=== PATIENT | female | born 2000 | race Caucasian/White ===

== ENCOUNTER 2020-06-28 22:44 | Inpatient (IN) | payer MEDICAID ==
[2020-06-29 00:11] LABS: APPEARANCE,URINE CLEAR; BILIRUBIN,URINE NEGATIVE (NEGATIVE); COLOR,URINE YELLOW; GLUCOSE, URINE 50 mg/dL (NEGATIVE); KETONES,URINE NEGATIVE (NEGATIVE); LEUKOCYTE ESTERASE,URINE TRACE (NEGATIVE); NITRITE,URINE NEGATIVE (NEGATIVE); PROTEIN,URINE NEGATIVE (NEGATIVE); UROBILINOGEN,URINE NEGATIVE mg/dL (<2.0)
[2020-06-29] MEDS ORDERED: ONDANSETRON HCL INJ/PF 4 MG/2 ML SDV IV ONE (00:25)
[2020-06-29] MEDS ORDERED: KETOROLAC TROMETHAMINE INJ/PF 30 MG/1 ML SDV IV ONE (00:25)
[2020-06-29] MEDS ORDERED: NORMAL SALINE 1000 ML 1,000 ML IV ONE (00:27)
--- NOTE | 2020-06-29 00:27 | ER Document Report ---
Entered by AHSAN AGUILAR SCRIBE 06/29/20 0004 Acting as scribe for:LATHA ERNST IV, MD ED GI/ - General Chief Complaint: Flank Pain Stated Complaint: FLANK PAIN Time Seen by Provider: 06/28/20 23:58 Primary Care Provider: BONNY PRITCHETT MD [Primary Care Provider] - Follow up as needed Mode of Arrival: Wheelchair Information source: Patient Notes: This 19 year old female patient, , currently x25 weeks presents to the ED today with complaints of worsening right flank pain for the last x2 days. Patient states that the pain radiates towards her groin and periumbilical region. She reports that she was seen at [facility] x2 days ago with the same complaint and was diagnosed with a UTI and was started on Macrobid. She mentions nausea, but denies vomiting, diarrhea, vaginal bleeding, or any urinary symptoms. - Related Data Allergies/Adverse Reactions: No Known Allergies Allergy (Unverified 06/28/20 23:40) Past Medical History - General Information source: Patient - Social History Smoking Status: Former Smoker Cigarette use (# per day): No Smoking Education Provided: No Frequency of alcohol use: None Drug Abuse: None Lives with: Spouse/Significant other Family History: Reviewed & Not Pertinent Patient has suicidal ideation: No Patient has homicidal ideation: No Review of Systems - Review of Systems Constitutional: No symptoms reported EENT: No symptoms reported Cardiovascular: No symptoms reported Respiratory: No symptoms reported Gastrointestinal: See HPI, Abdominal pain, Nausea. denies: Diarrhea, Vomiting Genitourinary: See HPI, Flank pain. denies: Burning, Dysuria, Frequency, Hematuria, Pain Female Genitourinary: See HPI, , Vaginal bleeding Musculoskeletal: No symptoms reported Skin: No symptoms reported Hematologic/Lymphatic: No symptoms reported Neurological/Psychological: No symptoms reported -: Yes All other systems reviewed and negative Physical Exam - Vital signs Vitals: Temp Pulse Resp BP Pulse Ox 98.6 F 117 H 17 125/62 100 06/28/20 22:53 06/28/20 22:53 06/28/20 22:53 06/28/20 22:53 06/28/20 22:53 Interpretation: Tachycardic - General General appearance: Alert In distress: None - HEENT Head: Normocephalic, Atraumatic Eyes: Normal Pupils: PERRL - Respiratory Respiratory status: No respiratory distress Chest status: Nontender Breath sounds: Normal Chest palpation: Normal - Cardiovascular Rhythm: Regular, Tachycardia Heart sounds: Normal auscultation Murmur: No Friction rub: No Gallop: None auscultated - Abdominal Inspection: Normal Distension: No distension Bowel sounds: Normal Tenderness: Nontender - Abdomen soft Organomegaly: No organomegaly - Back Back: CVA tenderness - Right CVA tenderness to percussion - Extremities General upper extremity: Normal inspection General lower extremity: Normal inspection - Neurological Neuro grossly intact: Yes Orientation: AAOx4 Velma Coma Scale Eye Opening: Spontaneous [place] Coma Scale Verbal: Oriented [place] Coma Scale Motor: Obeys Commands Velma Coma Scale Total: 15 - Psychological Associated symptoms: Normal affect, Normal mood - Skin Skin Temperature: Warm Skin Moisture: Dry Skin Color: Normal Course - Re-evaluation Re-evalutation: 06/29/20 00:48 Results of ED MSE discussed with patient. Can consult with Dr. Chang discussed with patient. Patient agreed to be admitted. - Vital Signs Vital signs: Temp Pulse Resp BP Pulse Ox 98.6 F 117 H 17 125/62 100 06/28/20 23:42 06/28/20 22:53 06/28/20 22:53 06/28/20 22:53 06/28/20 22:53 - Laboratory Result Diagrams: 06/29/20 00:25 06/29/20 00:25 Laboratory results interpreted by me: 06/28/20 06/29/20 23:32 00:25 Hct 34.6 L Lymph % (Auto) 9.6 L Seg Neutrophils % 80.0 H Urine Glucose (UA) 50 H Ur Leukocyte Esterase TRACE H - Consults Dr. Danuta Chang Vik, PROCESS TRAINER Time consulted: 00:25 - This discussed the case with Dr. Chang. We agreed that renal ultrasound would not likely be useful in further evaluating the patient's right flank pain. Dr. Chang was agreeable to having the patient undergo a CT abdomen pelvis without contrast as long as the fetus was shielded. This was informed by the technical support representative that if a shield was used the scan would be unreadable secondary to artifact from the shield. Dr. Chang was informed of this and stated that she would just admit the patient for right flank pain and treat with fluids and antibiotics. Dr. Chang requested that the patient be moved to the floor and when the patient arrived there Dr. Chang would write admission orders. Reason for consultation: 06/29/20 00:45 Worsening right flank pain not responsive to Macrobid. Consulted provider: will see as inpatient Discharge - Discharge Clinical Impression: Acute right flank pain Condition: Stable Disposition: ADMITTED OBSERVATION Admitting Provider: [facility] - Dr. Danuta Chang Unit Admitted: Post Referrals: BONNY PRITCHETT MD [Primary Care Provider] - Follow up as needed I personally performed the services described in the documentation, reviewed and edited the documentation which was dictated to the scribe in my presence, and it accurately records my words and actions.
[2020-06-29 00:31] LABS: ABSOLUTE NEUT (AUTO) 8.1 10^3/uL (1.7-8.2); BASOPHILS % (AUTO) 0.1 % (0-2); EOSINOPHILS % (AUTO) 0.4 % (0-6); HEMATOCRIT 34.6 % (36.0-47.0); HEMOGLOBIN 12.1 g/dL (12.0-15.5); LYMPHOCYTES % (AUTO) 9.6 % (13-45); MEAN CORPUSCULAR HEMOGLOBIN 30.3 pg (27.0-33.4); MEAN CORPUSCULAR HGB CONC 34.9 g/dL (32.0-36.0); MEAN CORPUSCULAR VOLUME 87 fl (80-97); MONOCYTES % (AUTO) 9.9 % (3-13); PLATELET COUNT 176 10^3/uL (150-450); RED BLOOD COUNT 3.98 10^6/uL (3.72-5.28); RED CELL DISTRIBUTION WIDTH 13.2 % (11.5-14.0); TOTAL CELLS COUNTED % (AUTO) 100 %; WHITE BLOOD COUNT 10.1 10^3/uL (4.0-10.5)
[2020-06-29] MEDS ORDERED: CEFTRIAXONE INJ 1000 MG VIAL IV ONE (00:49)
[2020-06-29 01:16] LABS: BLOOD UREA NITROGEN 9 mg/dL (7-20); GLUCOSE 93 mg/dL (75-110)
[2020-06-29 01:17] LABS: ALBUMIN 3.7 g/dL (3.7-5.6); ALKALINE PHOSPHATASE 76 U/L (50-135); ANION GAP 7 (5-19); ASPARTATE AMINO TRANSFERASE 17 U/L (5-30); BILIRUBIN,DIRECT 0.3 mg/dL (0.0-0.4); BILIRUBIN,TOTAL 0.6 mg/dL (0.2-1.3); CARBON DIOXIDE 23 mmol/L (22-30); CHLORIDE 104 mmol/L (98-107); TOTAL PROTEIN 6.8 g/dL (6.3-8.2)
[2020-06-29] MEDS ORDERED: ONDANSETRON HCL INJ/PF 4 MG/2 ML SDV IV PRN (03:18)
[2020-06-29] MEDS: RINGERS SOLUTION,LACTATED 1,000 ML IV PRN ×3 (04:06→23:03)
--- NOTE | 2020-06-29 06:32 | PDOC H&P ---
History of Present Illness Admission Date/PCP: 06/29/20 01:11 ROSALINA SANTOS MD Patient complains of: flank pain and dysuria, 24 wks History of Present Illness: BALAJI ROMAN is a 19 year old female @ 24 wks with c/o UTI that she began taking meds for from her OB appt on Monday. However, her abdominal pain increased and radiated to her back. Indicates pain worsening Past Medical History Psychiatric Medical History: Denies: Depression Social History Lives with: Spouse/Significant other Smoking Status: Former Smoker Electronic Cigarette use?: No Number of Years Smokin Last Time Smoked: 2018 Frequency of Alcohol Use: None Hx Recreational Drug Use: No Drugs: None Hx Prescription Drug Abuse: No Family History Family History: Reviewed & Not Pertinent Parental Family History Reviewed: Yes Children Family History Reviewed: Yes Sibling(s) Family History Reviewed.: Yes Medication/Allergy Home Medications: Nitrofurantoin Monohyd/M-Cryst [Macrobid 100 mg Capsule] 100 mg PO BID 06/28/20 Allergies/Adverse Reactions: No Known Allergies Allergy (Unverified 06/28/20 23:40) Review of Systems Constitutional: PRESENT: as per HPI Physical Exam - Physical Exam Vital Signs: Temp Pulse Resp BP Pulse Ox 98.4 F 85 14 104/54 L 99 06/29/20 03:00 06/29/20 03:00 06/29/20 03:00 06/29/20 03:00 06/29/20 03:00 Intake & Output 06/27/20 06/28/20 06/29/20 06:59 06:59 06:59 Intake Total 1000 Balance 1000 Weight 67.585 kg General appearance: PRESENT: no acute distress, cooperative - mild right CVA tendernernes - Obstetrical Exam Fundal Height: u/u - u/2 Tender: No Result Laboratory Results: 06/29/20 00:25 06/29/20 00:25 06/28/20 06/29/20 06/29/20 23:32 00:25 00:25 WBC 10.1 RBC 3.98 Hgb 12.1 Hct 34.6 L MCV 87 MCH 30.3 MCHC 34.9 RDW 13.2 Plt Count 176 Seg Neutrophils % 80.0 H Sodium 134.1 L Potassium 4.0 Chloride 104 Carbon Dioxide 23 Anion Gap 7 BUN 9 Creatinine 0.60 Est GFR ( Amer) > 60 Glucose 93 Calcium 9.0 Total Bilirubin 0.6 AST 17 Alkaline Phosphatase 76 Total Protein 6.8 Albumin 3.7 Lipase 69.9 Urine Color YELLOW Urine Appearance CLEAR Urine pH 7.0 Ur Specific [place] 1.010 Urine Protein NEGATIVE Urine Glucose (UA) 50 H Urine Ketones NEGATIVE Urine Blood NEGATIVE Urine Nitrite NEGATIVE Ur Leukocyte Esterase TRACE H Urine WBC (Auto) 14 Urine RBC (Auto) 0 Assessment & Plan - Diagnosis (1) Qualifiers: Weeks of gestation: 24 weeks Qualified Code(s): Z3A.24 - 24 weeks gestation of Is this a current diagnosis for this admission?: Yes (2) Pyelonephritis Is this a current diagnosis for this admission?: Yes - Time Time Spent: 30 to 50 Minutes Critical Time spent with patient: Less than 15 minutes Medications reviewed and adjusted accordingly: Yes Anticipated Discharge Disposition: Home, Self Care Anticipated Discharge Timeframe: within 24 hours - hydrate and antibiotics. pt's pain control seems good and she has not asked for narcotics per patient - Inpatient Certification Based on my medical assessment, after consideration of the patient's comorbidities, presenting symptoms, or acuity I expect that the services needed warrant INPATIENT care.: Yes I certify that my determination is in accordance with my understanding of Medicare's requirements for reasonable and necessary INPATIENT services [42 CFR 412.3e].: Yes Medical Necessity: Failure to Improve With Outpatient Therapy, Need For IV Fluids, Need for IV Antibiotics
--- NOTE | 2020-06-29 07:27 | RADIOLOGY REPORT (SQ) ---
RENAL ULTRASOUND: 06/29/2020 6:24 AM CDT HISTORY: 19-year old with concern for infection. COMPARISON: None available TECHNIQUE: Limited sonographic evaluation of the kidneys was performed. FINDINGS: Both kidneys demonstrate normal cortical echogenicity. The right kidney measures up to 10.6 cm in length. The left kidney measures up to 10.8 cm in length. There is mild fullness of the bilateral renal pelvises. No free intraperitoneal fluid is seen. The visualized portions of the urinary bladder appear grossly unremarkable. The abdominal aorta and inferior vena cava are not well visualized. IMPRESSION: There is mild fullness of the bilateral renal pelvises which could be due to hydronephrosis or prominent extrarenal pelvises.
[2020-06-29] MEDS: CEFTRIAXONE 1 GM/D5W RTU 1 GM/50 ML RTUPB IV SCH ×2 (10:04→21:42)
[2020-06-29] MEDS: OXYCODONE-ACETAMINOPHEN 5-325 MG TABLET PO PRN ×2 (14:41→23:16)
[2020-06-30] MEDS: OXYCODONE-ACETAMINOPHEN 5-325 MG TABLET PO PRN ×3 (04:06→21:04)
[2020-06-30] MEDS: RINGERS SOLUTION,LACTATED 1,000 ML IV PRN ×2 (06:18→21:06)
[2020-06-30] MEDS: CEFTRIAXONE 1 GM/D5W RTU 1 GM/50 ML RTUPB IV SCH ×2 (09:43→21:05)
--- NOTE | 2020-06-30 11:19 | PDOC PROGRESS REPORT ---
Subjective Progress Note for:: 06/30/20 Subjective:: Doing okay today. Still having some nausea with breakfast and had to stop eating due to nausea. Tolerating fluids She denies fever or chills. No hematuria or dysuria today. Voiding okay. Has some back pain still on right when moving. She is laying on right side. Reason For Visit: ACUTE PYELONEPHRITIS Physical Exam - Physical Exam Vital Signs: Temp Pulse Resp BP Pulse Ox 97.4 F 78 20 103/57 L 100 06/30/20 10:00 06/30/20 08:16 06/30/20 08:16 06/30/20 08:16 06/30/20 08:16 Intake & Output 06/29/20 06/30/20 07/01/20 06:59 06:59 06:59 Intake Total 1000 3100 Output Total 3100 Balance 1000 0 Weight 67.6 kg 66.1 kg General appearance: PRESENT: no acute distress, cooperative Respiratory exam: PRESENT: clear to auscultation dixon Cardiovascular exam: PRESENT: RRR, +S1, +S2 GI/Abdominal exam: PRESENT: soft, tenderness - No CVA tenderness left. Tender on palpation on right. Extremities exam: PRESENT: full ROM. ABSENT: calf tenderness, clubbing, pedal edema Neurological exam: PRESENT: alert, awake. ABSENT: motor sensory deficit Psychiatric exam: PRESENT: normal mood Skin exam: PRESENT: dry, intact, warm. ABSENT: cyanosis, rash Result Laboratory Results: 06/29/20 00:25 06/29/20 00:25 Impressions: Renal Ultrasound 06/29/20 00:00 IMPRESSION: There is mild fullness of the bilateral renal pelvises which could be due to hydronephrosis or prominent extrarenal pelvises. Assessment & Plan - Diagnosis (2) Qualifiers: Weeks of gestation: 25 weeks Qualified Code(s): Z3A.25 - 25 weeks gestation of Is this a current diagnosis for this admission?: Yes (3) Pyelonephritis Is this a current diagnosis for this admission?: Yes - Time Time Spent with patient: 15-24 minutes Medications reviewed and adjusted accordingly: Yes Anticipated discharge: Home - Right pyelonephritis in -Not tolerating PO well -Afebrile and VSS -Exam positive for Right CVA tenderness -Culture prelim showed Gram neg rods: likely ecoli. -Continue rocephen 1 gm IV Q 12 - Good out put -FHT daily Anticipated DC Timeframe: within 48 hours
[2020-07-01] MEDS: RINGERS SOLUTION,LACTATED 1,000 ML IV PRN (04:36)
--- NOTE | 2020-07-01 07:37 | PDOC DISCHARGE SUMMARY ---
Impression - Admit/DC Date/PCP Admission Date/Primary Care Provider: 06/29/20 01:11 ROSALINA SANTOS MD Discharge Date: 07/01/20 - Discharge Diagnosis (1) Acute right flank pain Is this a current diagnosis for this admission?: Yes (2) Is this a current diagnosis for this admission?: Yes (3) Pyelonephritis Is this a current diagnosis for this admission?: Yes - Additional Information Resuscitation Status: Full Code - Patient admitted with right flank pain and found to have right pyelonephritis. She was given rocephen IV and Urine culture showed ecoli-sheikh sensative She was having nausea and vomitng with her flank pain but today these have resolved. She is afebrile. Will discharge with PO antibiotics and outpatient follow up .Fetus stable. She is encouraged to keep hydrating and call if not tolerating antibiotics at home or if worsening condition. Discharge Diet: As Tolerated Discharge Activity: Activity As Tolerated Referrals: BONNY PRITCHETT MD [NO LOCAL MD] - Follow up as needed Prescriptions: Cephalexin Monohydrate [Keflex 500 mg Capsule] 500 mg PO BID #14 capsule Ondansetron [Zofran Odt 4 mg Tablet] 1 tab PO Q4HP PRN #10 tab.rapdis PRN Reason: Home Medications: Cephalexin Monohydrate [Keflex 500 mg Capsule] 500 mg PO BID #14 capsule 07/01/20 Ondansetron [Zofran Odt 4 mg Tablet] 1 tab PO Q4HP PRN #10 tab.rapdis 07/01/20 History of Present Illiness History of Present Illness: BALAJI ROMAN is a 19 year old female Physical Exam - Physical Exam Vital Signs: Temp Pulse Resp BP Pulse Ox 98.6 F 79 16 123/62 100 07/01/20 04:45 07/01/20 04:45 07/01/20 04:45 07/01/20 04:45 07/01/20 04:45 Intake & Output 06/30/20 07/01/20 07/02/20 06:59 06:59 06:59 Intake Total 3100 4200 Output Total 3100 3600 Balance 0 600 Weight 66.1 kg 66 kg Results Laboratory Results: WBC 10.1 10^3/uL (4.0-10.5) 06/29/20 00:25 RBC 3.98 10^6/uL (3.72-5.28) 06/29/20 00:25 Hgb 12.1 g/dL (12.0-15.5) 06/29/20 00:25 Hct 34.6 % (36.0-47.0) L 06/29/20 00:25 MCV 87 fl (80-97) 06/29/20 00: MCH 30.3 pg (27.0-33.4) 06/29/20 00: MCHC 34.9 g/dL (32.0-36.0) 06/29/20 00:25 RDW 13.2 % (11.5-14.0) 06/29/20 00: Plt Count 176 10^3/uL (150-450) 06/29/20 00: Lymph % (Auto) 9.6 % (13-45) L 06/29/20 00: [place] % (Auto) 9.9 % (3-13) 06/29/20 00: Eos % (Auto) 0.4 % (0-6) 06/29/20 00: Baso % (Auto) 0.1 % (0-2) 06/29/20 00:25 Absolute Neuts (auto) 8.1 10^3/uL (1.7-8.2) 06/29/20 00: Absolute Lymphs (auto) 1.0 10^3/uL (0.5-4.7) 06/29/20 00:25 Absolute Monos (auto) 1.0 10^3/uL (0.1-1.4) 06/29/20 00:25 Absolute Eos (auto) 0.0 10^3/uL (0.0-0.6) 06/29/20 00:25 Absolute Basos (auto) 0.0 10^3/uL (0.0-0.2) 06/29/20 00:25 Seg Neutrophils % 80.0 % (42-78) H 06/29/20 00:25 Sodium 134.1 mmol/L (137-145) L 06/29/20 00:25 Potassium 4.0 mmol/L (3.6-5.0) 06/29/20 00: Chloride 104 mmol/L (98-107) 06/29/20 00:25 Carbon Dioxide 23 mmol/L (22-30) 06/29/20 00:25 Anion Gap 7 (5-19) 06/29/20 00:25 BUN 9 mg/dL (7-20) 06/29/20 00:25 Creatinine 0.60 mg/dL (0.52-1.25) 06/29/20 00:25 Est GFR ( Amer) > 60 (>60) 06/29/20 00:25 Est GFR (MDRD) Non-Af > 60 (>60) 06/29/20 00:25 Glucose 93 mg/dL (75-110) 06/29/20 00:25 Calcium 9.0 mg/dL (8.4-10.2) 06/29/20 00:25 Total Bilirubin 0.6 mg/dL (0.2-1.3) 06/29/20 00:25 Direct Bilirubin 0.3 mg/dL (0.0-0.4) 06/29/20 00:25 Neonat Total Bilirubin Not Reportable 06/29/20 00:25 Neonat Direct Bilirubin Not Reportable 06/29/20 00:25 Neonat Indirect Bili Not Reportable 06/29/20 00:25 AST 17 U/L (5-30) 06/29/20 00:25 ALT 11 U/L (<35) 06/29/20 00:25 Alkaline Phosphatase 76 U/L (50-135) 06/29/20 00:25 Total Protein 6.8 g/dL (6.3-8.2) 06/29/20 00:25 Albumin 3.7 g/dL (3.7-5.6) 06/29/20 00:25 Lipase 69.9 U/L (23-300) 06/29/20 00:25 Beta HCG, Quant 7846.60 mIU/mL (0.0-6.15) H 06/29/20 00:25 Total Beta HCG POSITIVE (NEGATIVE) 06/29/20 00:25 Urine Color YELLOW 06/28/20 23:32 Urine Appearance CLEAR 06/28/20 23:32 Urine pH 7.0 (5.0-9.0) 06/28/20 23:32 Ur Specific [place] 1.010 06/28/20 23:32 Urine Protein NEGATIVE mg/dL (NEGATIVE) 06/28/20 23:32 Urine Glucose (UA) 50 mg/dL (NEGATIVE) H 06/28/20 23:32 Urine Ketones NEGATIVE mg/dL (NEGATIVE) 06/28/20 23:32 Urine Blood NEGATIVE (NEGATIVE) 06/28/20 23:32 Urine Nitrite NEGATIVE (NEGATIVE) 06/28/20 23:32 Urine Bilirubin NEGATIVE (NEGATIVE) 06/28/20 23:32 Urine Urobilinogen NEGATIVE mg/dL (<2.0) 06/28/20 23:32 Ur Leukocyte Esterase TRACE (NEGATIVE) H 06/28/20 23:32 Urine WBC (Auto) 14 /HPF 06/28/20 23:32 Urine RBC (Auto) 0 /HPF 06/28/20 23:32 Urine Bacteria (Auto) 3+ /HPF 06/28/20 23:32 Squamous Epi Cells Auto 1 /HPF 06/28/20 23:32 Urine Mucus (Auto) RARE /LPF 06/28/20 23:32 Urine Ascorbic Acid NEGATIVE (NEGATIVE) 06/28/20 23:32 Impressions: Renal Ultrasound 06/29/20 00:00 IMPRESSION: There is mild fullness of the bilateral renal pelvises which could be due to hydronephrosis or prominent extrarenal pelvises. Stroke Is this a Stroke Patient?: No Acute Heart Failure - Is this a Heart Failure Patient?: No
[2020-07-01] MEDS: CEFTRIAXONE 1 GM/D5W RTU 1 GM/50 ML RTUPB IV SCH (11:13)
[2020-07-01 11:39] VITALS: BP 106/48
== END 2020-07-01 15:30 | disposition home or self-care (01) | DRG 833 ==
LOC: ER 22:44 → EH 06-29 01:11 → 2N 06-29 02:54 → OBSVTOIN 06-30 13:43
PROVIDERS: ADMIT Obstetrics & Gynecology; ATTEND Obstetrics & Gynecology
DX: O23.02 Infections of kidney in pregnancy, second trimester (principal); B96.20 Unspecified Escherichia coli [E. coli] as the cause of diseases classified elsewhere; Z3A.24 24 weeks gestation of pregnancy; Z87.891 Personal history of nicotine dependence
CPT/HCPCS: 36415; 76775; 80053; 81001; 83690; 84702; 85025; 87086; 87088; 87186; G0378; J0696; J1885; J2405; J7030; J7120

== ENCOUNTER 2020-10-16 18:52 | Inpatient (IN) | payer MEDICAID ==
[2020-10-16 19:43] LABS: APPEARANCE,URINE CLEAR; BILIRUBIN,URINE NEGATIVE (NEGATIVE); COLOR,URINE YELLOW; GLUCOSE, URINE NEGATIVE (NEGATIVE); KETONES,URINE NEGATIVE (NEGATIVE); LEUKOCYTE ESTERASE,URINE SMALL (NEGATIVE); NITRITE,URINE NEGATIVE (NEGATIVE); PROTEIN,URINE 30 mg/dL (NEGATIVE); URINE SPECIFIC GRAVITY 1.021
[2020-10-16 20:05] LABS: URINE AMPHETAMINES SCREEN NEGATIVE; URINE BARBITURATES SCREEN NEGATIVE; URINE BENZODIAZEPINES SCREEN NEGATIVE; URINE COCAINE SCREEN NEGATIVE; URINE MARIJUANA (THC) SCREEN NEGATIVE; URINE METHADONE SCREEN NEGATIVE; URINE PHENCYCLIDINE SCREEN NEGATIVE
[2020-10-16] MEDS ORDERED: RINGERS SOLUTION,LACTATED 1,000 ML IV ONE (21:52)
[2020-10-16] MEDS ORDERED: RINGERS SOLUTION,LACTATED 1,000 ML IV PRN (21:52)
[2020-10-16] MEDS ORDERED: FENTANYL CITRATE INJ/PF 100 MCG/2 ML AMPUL IV ONE (21:53)
[2020-10-16] MEDS ORDERED: LIDOCAINE 1% INJ-PF (10 MG/ML) 30 ML SDV ONE (22:07)
[2020-10-16] MEDS ORDERED: OXYTOCIN 10 UNIT/ML VIAL ONE (22:07)
[2020-10-16] MEDS ORDERED: OXYTOCIN/0.9 % SODIUM CHLORIDE 30 UNIT/500 ML RTUINJ ONE (22:07)
[2020-10-16] MEDS ORDERED: MISOPROSTOL 0.2 MG TABLET ONE (22:07)
[2020-10-16] MEDS ORDERED: FENTANYL CITRATE INJ/PF 100 MCG/2 ML AMPUL ONE (22:11)
[2020-10-16 22:12] LABS: HEMATOCRIT 32.8 % (36.0-47.0); MEAN CORPUSCULAR HGB CONC 33.5 g/dL (32.0-36.0); MEAN CORPUSCULAR VOLUME 78 fl (80-97); PLATELET COUNT 176 10^3/uL (150-450); RED BLOOD COUNT 4.23 10^6/uL (3.72-5.28); RED CELL DISTRIBUTION WIDTH 15.3 % (11.5-14.0); WHITE BLOOD COUNT 8.2 10^3/uL (4.0-10.5)
--- NOTE | 2020-10-16 22:18 | Admission Physical ---
Datetime Report Generated by CPN: 10/16/2020 22:18 CURRENT ADMISSION Chief Complaint: Uterine Contractions Indication for Induction: Not Applicable Admit Impression : Term, Intrauterine ; Active Labor; Intact Membranes Admit Plan: Admit to Unit ALLERGIES Medication Allergies: No Medication Allergies: No Known Allergies (10/16/2020) Latex: No Latex Allergies OBSTETRICAL HISTORY EDC: 10/14/2020 00:00 : 3 Para: 2 Term: 2 : 0 SAB: 0 IAB: 0 Livin Gestational Diabetes: No Rh Sensitization: No Incompetent Cervix: No OLIVIER: No Infertility: No ART Treatment: No Uterine Anomaly: No IUGR: No Hx Previous C/S: No Macrosomia: No Hx Loss/Stillborn: No PIH: No Hx : No Placenta Previa/Abruption: No Depression/PP Depression: No PTL/PROM: No Post Hemorrhage: No Obstetrical History Comments: G1: 2015 girl 7 lbs 3 oz G2: 2016 8 lbs girl G3: current SEE RECORDS Alcohol: No Marijuana : No Cocaine: No Other Illicit Drugs: No Cigarettes: Former Smoker. 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 Surgery: No Heart Disease: No Hosp/Surgery: Yes Autoimmune Disorder: No Anesthetic Complications: No Kidney Disease: Yes Abnormal Pap Smear: No Neuro/Epilepsy: No Psychiatric Disorders: No Other Medical Diseases: No Hepatitis/Liver Disease: No Significant Family History: No Varicosities/Phlebitis: Yes Trauma/Violence : No Thyroid Dysfunction: No Medical History Comments: hospitalized [facility] on 06/29, vulvar varicosities, childbirth, mental health issues (2016) per chart INFECTIOUS HISTORY Gonorrhea: No Genital Herpes: No Chlamydia: No Tuberculosis: No Syphilis: No Hepatitis: No HIV/AIDS Exposure: No Rash or Viral Illness: No HPV: No PHYSICAL EXAM General: Normal HEENT: Normal Neurologic: Normal Thyroid: Deferred Heart: Normal Lungs: Normal Breast: Deferred Back: Normal Abdomen: Normal Genitourinary Exam: Normal Extremities: Normal DTRs: Normal Pelvic Type: Adequate Vital Signs: Reviewed VAGINAL EXAM Dilatation: 8 Effacement: 100 Station: 0 Contraction Comments: 2-3 MEMBRANES Membranes: Intact FETUS A EGA: 40.2 Monitoring: External US FHR- Baseline: 120 Variability: Moderate 6-25bpm Accelerations: 15X15 Decelerations: None FHR Category: Category I Presentation: Vertex Admit Comment: 20yo at 40+2ega presents for ctx and initially 4cm. After 2 hours aris was 7-8cm. She does not wish to have epidural. Fentanyl 50mcg given IV for pain. IV started and anticipate . H/o pyelo during . vulvar varicosities. Anticipate . PLANS FOR LABOR AND DELIVERY Labor and Delivery: None Other Pain Management Plans: IV pain meds Feeding Preference: Breast Circumcision: Yes INFORMED CONSENT Informed Consent Obtained: Vaginal Delivery; Risks, Benefits and Alternatives Discussed Signature: with User ID: [email or web address]
[2020-10-16] MEDS ORDERED: FENTANYL/BUPIVACAINE/NS/PF 300 MCG/150 ML RTUINJ EPI ONE (23:24)
[2020-10-16] MEDS ORDERED: ROPIVACAINE HCL 0.2% INJ/PF (2 MG/ML) 20 ML SDV ONE (23:24)
[2020-10-16] MEDS ORDERED: EPHEDRINE SULFATE INJ 50 MG/1 ML AMPULE ONE (23:24)
[2020-10-17] MEDS ORDERED: NA PHOS,M-B/NA PHOS,DI-BA (ADULT) 133 ML ENEMA PR PRN (03:45)
[2020-10-17] MEDS ORDERED: ACETAMINOPHEN WITH CODEINE #3 TABLET PO PRN (03:45)
[2020-10-17] MEDS ORDERED: DIPH/PERTUSS(ACELL)/TETANUS VAC/PF 0.5 ML SYR (>=10YO) IM PRN (03:45)
[2020-10-17] MEDS ORDERED: PROMETHAZINE HCL 25 MG TABLET PO PRN (03:45)
[2020-10-17] MEDS ORDERED: MAGNESIUM HYDROXIDE SUSP 30 ML UDCUP PO PRN (03:45)
[2020-10-17] MEDS ORDERED: GLYCERIN/WITCH HAZEL LEAF 1 EACH MED..WIPE TP PRN (03:45)
[2020-10-17] MEDS ORDERED: ZOLPIDEM TARTRATE 5 MG TABLET PO PRN (03:45)
[2020-10-17] MEDS ORDERED: BENZOCAINE/MENTHOL AEROSOL SPRAY 56 ML TOP PRN (03:45)
[2020-10-17] MEDS ORDERED: PROMETHAZINE HCL INJ 25 MG/1 ML VIAL IV PRN (03:45)
[2020-10-17] MEDS ORDERED: MEASLES,MUMPS&RUBELLA VACC/PF 0.5 ML VIAL SUBCUT PRN (03:45)
[2020-10-17] MEDS ORDERED: ACETAMINOPHEN 325 MG TABLET PO PRN (03:45)
[2020-10-17] MEDS ORDERED: OXYTOCIN/0.9 % SODIUM CHLORIDE 30 UNIT/500 ML RTUINJ IV PRN (03:45)
[2020-10-17] MEDS ORDERED: PSEUDOEPHEDRINE HCL 30 MG TABLET PO PRN (03:45)
[2020-10-17] MEDS ORDERED: DIBUCAINE 1% OINTMENT 28 GM TP PRN (03:45)
[2020-10-17] MEDS ORDERED: DIPHENHYDRAMINE HCL 25 MG CAPSULE PO PRN (03:45)
[2020-10-17] MEDS ORDERED: PROMETHAZINE HCL 25 MG SUPP.RECT PR PRN (03:45)
--- NOTE | 2020-10-17 04:37 | Warning Signs in Babies ---
VOD Warning Signs Datetime Report Generated by [facility]: 10/17/2020 04:36 VOD#608 -Warning Signs in Babies: Viewed with Parent(s)/Family (10/16/2020 19:01:Yrn Valentin RN)
--- NOTE | 2020-10-17 04:38 | Warning Signs in Babies ---
VOD Warning Signs Datetime Report Generated by [facility]: 10/17/2020 04:37 VOD#608 -Warning Signs in Babies: Viewed with Parent(s)/Family (10/17/2020 04:36:Yrn Valentin RN)
[2020-10-17] MEDS: IBUPROFEN 800 MG TABLET PO SCH ×3 (05:59→22:31)
[2020-10-17] MEDS: FERROUS SULFATE 325 MG TABLET PO SCH ×2 (10:02→18:55)
[2020-10-17] MEDS: PRENATAL VITAMIN W DHA CAPSULE PO SCH (10:02)
[2020-10-17] MEDS: SENNOSIDES/DOCUSATE 8.6-50 MG 1 EACH TABLET PO SCH (10:02)
[2020-10-17] MEDS: DOCUSATE SODIUM 100 MG CAPSULE PO SCH ×2 (10:02→18:55)
[2020-10-17] MEDS: FAMOTIDINE 20 MG TABLET PO SCH ×2 (10:03→22:31)
--- NOTE | 2020-10-17 10:56 | PDOC PROGRESS REPORT ---
Subjective-OB Progress Note for:: 10/17/20 - Delivery Day, doing well, UOB, voiding, . Physical Exam (OB) Vital Signs: Temp Pulse Resp BP Pulse Ox 97.6 F 78 18 103/69 99 10/17/20 08:10 10/17/20 07:35 10/17/20 07:35 10/17/20 07:35 10/17/20 07:35 Intake & Output 10/16/20 10/17/20 10/18/20 06:59 06:59 06:59 Weight 75.8 kg - General General Appearance: Appears well, Alert In distress: None - PIH/Pre-Eclampsia DTR's: 2 + Clonus: Negative Headache: Absent Epigastric Pain: No Visual Changes: No - Maternal Morbidity 59. Maternal Morbidity (serious complications experinced by the mother associated with labor and delivery: None of the above - Lochia Lochia Amount: Scant < 10 ml Lochia Color: Rubra/Red - Abdomen Description: Soft Hernia Present: No Fundal Description: Firm, Midline Fundal Height: u/u - u/2 - Respiratory Respiratory Status: No respiratory distress - Abdominal Distension: No distension - Genitourinary Genitourinary Note: voiding Objective-Diagnostic Laboratory: 10/16/20 22:04 10/16/20 10/16/20 10/16/20 19:00 22:04 22:04 WBC 8.2 RBC 4.23 Hgb 11.0 L Hct 32.8 L MCV 78 L MCH 26.0 L MCHC 33.5 RDW 15.3 H Plt Count 176 Urine Color YELLOW Urine Appearance CLEAR Urine pH 6.0 Ur Specific [place] 1.021 Urine Protein 30 H Urine Glucose (UA) NEGATIVE Urine Ketones NEGATIVE Urine Blood NEGATIVE Urine Nitrite NEGATIVE Ur Leukocyte Esterase SMALL H Blood Type O POSITIVE Antibody Screen NEGATIVE Assessment and Plan(PN) - Assessment and Plan (1) Active labor at term Is this a current diagnosis for this admission?: Yes (2) Anemia Qualifiers: Anemia type: iron deficiency Is this a current diagnosis for this admission?: Yes (3) Vaginal delivery Is this a current diagnosis for this admission?: Yes Plan:: amublation encouraged, routine PP orders - Time Spent with Patient Time with patient: Less than 15 minutes Medications reviewed and adjusted accordingly: Yes - Disposition Anticipated Discharge Disposition: Home, Self Care Anticipated Discharge Timeframe: within 48 hours
[2020-10-17] MEDS: ACETAMINOPHEN WITH CODEINE #3 TABLET PO PRN (18:58)
[2020-10-18] MEDS: IBUPROFEN 800 MG TABLET PO SCH ×3 (05:24→22:58)
[2020-10-18] MEDS ORDERED: HYDRALAZINE HCL INJ/PF 20 MG/1 ML SDV ONE (05:42)
[2020-10-18 07:13] LABS: HEMATOCRIT 30.5 % (36.0-47.0); HEMOGLOBIN 10.2 g/dL (12.0-15.5); MEAN CORPUSCULAR HEMOGLOBIN 25.9 pg (27.0-33.4); MEAN CORPUSCULAR HGB CONC 33.3 g/dL (32.0-36.0); MEAN CORPUSCULAR VOLUME 78 fl (80-97); PLATELET COUNT 146 10^3/uL (150-450); RED BLOOD COUNT 3.93 10^6/uL (3.72-5.28); RED CELL DISTRIBUTION WIDTH 15.5 % (11.5-14.0); WHITE BLOOD COUNT 7.5 10^3/uL (4.0-10.5)
--- NOTE | 2020-10-18 11:08 | PDOC PROGRESS REPORT ---
Subjective-OB Progress Note for:: 10/18/20 - PP Day #1, doing well, O+, Rubella Immune, , UOB, voiding Physical Exam (OB) Vital Signs: Temp Pulse Resp BP Pulse Ox 98.2 F 74 16 114/75 100 10/17/20 22:00 10/17/20 20:15 10/17/20 20:15 10/17/20 20:15 10/17/20 20:15 Intake & Output 10/17/20 10/18/20 10/19/20 06:59 06:59 06:59 Intake Total 1200 Balance 1200 Weight 75.8 kg - General General Appearance: Appears well, Alert In distress: None - PIH/Pre-Eclampsia DTR's: 2 + Clonus: Negative Headache: Absent Epigastric Pain: No Visual Changes: No - Maternal Morbidity 59. Maternal Morbidity (serious complications experinced by the mother associated with labor and delivery: None of the above - Lochia Lochia Amount: Small 10-25 ml Lochia Color: Rubra/Red - Abdomen Description: Soft Hernia Present: No Fundal Description: Firm, Midline Fundal Height: u/u - u/2 - Respiratory Respiratory Status: No respiratory distress - Abdominal Inspection: Normal Distension: No distension - Genitourinary Genitourinary Note: voiding - Extremities Upper extremity: Normal inspection Lower extremities: Normal inspection - Neurological Cognition: Normal Orientation: AAOx4 - Skin Skin Temperature: Warm Skin Moisture: Dry Objective-Diagnostic Laboratory: 10/18/20 06:45 10/18/20 06:45 WBC 7.5 RBC 3.93 Hgb 10.2 L Hct 30.5 L MCV 78 L MCH 25.9 L MCHC 33.3 RDW 15.5 H Plt Count 146 L Assessment and Plan(PN) - Assessment and Plan (1) Active labor at term Is this a current diagnosis for this admission?: Yes (2) Anemia Qualifiers: Anemia type: iron deficiency Is this a current diagnosis for this admission?: Yes (3) Vaginal delivery Is this a current diagnosis for this admission?: Yes Plan:: mbulation encouraged, Routine PP orders - Time Spent with Patient Time with patient: Less than 15 minutes Medications reviewed and adjusted accordingly: Yes - Disposition Anticipated Discharge Disposition: Home, Self Care Anticipated Discharge Timeframe: within 24 hours
[2020-10-18] MEDS: FERROUS SULFATE 325 MG TABLET PO SCH ×2 (12:10→19:18)
[2020-10-18] MEDS: DOCUSATE SODIUM 100 MG CAPSULE PO SCH ×2 (12:10→19:18)
[2020-10-18] MEDS: FAMOTIDINE 20 MG TABLET PO SCH ×2 (12:10→22:58)
[2020-10-18] MEDS: SENNOSIDES/DOCUSATE 8.6-50 MG 1 EACH TABLET PO SCH (12:10)
[2020-10-18] MEDS: PRENATAL VITAMIN W DHA CAPSULE PO SCH (14:19)
[2020-10-19] MEDS: ACETAMINOPHEN WITH CODEINE #3 TABLET PO PRN (00:24)
[2020-10-19] MEDS: IBUPROFEN 800 MG TABLET PO SCH ×2 (05:12→15:17)
[2020-10-19 09:04] VITALS: BP 104/50
[2020-10-19] MEDS: SENNOSIDES/DOCUSATE 8.6-50 MG 1 EACH TABLET PO SCH (11:15)
[2020-10-19] MEDS: DOCUSATE SODIUM 100 MG CAPSULE PO SCH (11:15)
[2020-10-19] MEDS: FERROUS SULFATE 325 MG TABLET PO SCH (11:15)
[2020-10-19] MEDS: PRENATAL VITAMIN W DHA CAPSULE PO SCH (11:15)
[2020-10-19] MEDS: FAMOTIDINE 20 MG TABLET PO SCH (11:15)
--- NOTE | 2020-10-19 14:56 | PDOC DISCHARGE SUMMARY ---
Impression - Admit/DC Date/PCP Admission Date/Primary Care Provider: 10/16/20 22:00 JESÚS LLAMAS MD Discharge Date: 10/19/20 - Discharge Diagnosis (1) Active labor at term Is this a current diagnosis for this admission?: Yes (2) Anemia Is this a current diagnosis for this admission?: Yes (3) Vaginal delivery Is this a current diagnosis for this admission?: Yes - Additional Information Discharge Diet: Regular Discharge Activity: Balance Activity w/Rest, Pelvic Rest Referrals: [facility] [Provider Group] (Please call and schedule a 4 week f/u at [facility].) Prescriptions: Ibuprofen [Motrin 800 mg Tablet] 800 mg PO Q8HP PRN #60 tablet PRN Reason: Home Medications: Pnv No.95/Ferrous Fum/Folic AC [ Caplet] 1 tab PO DAILY 10/16/20 Ibuprofen [Motrin 800 mg Tablet] 800 mg PO Q8HP PRN #60 tablet 10/19/20 Hospital Course 59. Maternal Morbidity (serious complications experinced by the mother associated with labor and delivery: None of the above Results Laboratory Results: WBC 7.5 10^3/uL (4.0-10.5) 10/18/20 06:45 RBC 3.93 10^6/uL (3.72-5.28) 10/18/20 06:45 Hgb 10.2 g/dL (12.0-15.5) L 10/18/20 06:45 Hct 30.5 % (36.0-47.0) L 10/18/20 06:45 MCV 78 fl (80-97) L 10/18/20 06:45 MCH 25.9 pg (27.0-33.4) L 10/18/20 06:45 MCHC 33.3 g/dL (32.0-36.0) 10/18/20 06:45 RDW 15.5 % (11.5-14.0) H 10/18/20 06:45 Plt Count 146 10^3/uL (150-450) L 10/18/20 06:45 Urine Color YELLOW 10/16/20 19:00 Urine Appearance CLEAR 10/16/20 19:00 Urine pH 6.0 (5.0-9.0) 10/16/20 19:00 Ur Specific [place] 1.021 10/16/20 19:00 Urine Protein 30 mg/dL (NEGATIVE) H 10/16/20 19:00 Urine Glucose (UA) NEGATIVE mg/dL (NEGATIVE) 10/16/20 19:00 Urine Ketones NEGATIVE mg/dL (NEGATIVE) 10/16/20 19:00 Urine Blood NEGATIVE (NEGATIVE) 10/16/20 19:00 Urine Nitrite NEGATIVE (NEGATIVE) 10/16/20 19:00 Urine Bilirubin NEGATIVE (NEGATIVE) 10/16/20 19:00 Urine Urobilinogen 4.0 mg/dL (<2.0) H 10/16/20 19:00 Ur Leukocyte Esterase SMALL (NEGATIVE) H 10/16/20 19:00 Urine Ascorbic Acid NEGATIVE (NEGATIVE) 10/16/20 19:00 Urine Opiates Screen NEGATIVE 10/16/20 19:00 Urine Methadone Screen NEGATIVE 10/16/20 19:00 Ur Barbiturates Screen NEGATIVE 10/16/20 19:00 Ur Phencyclidine Scrn NEGATIVE 10/16/20 19:00 Ur Amphetamines Screen NEGATIVE 10/16/20 19:00 U Benzodiazepines Scrn NEGATIVE 10/16/20 19:00 Urine Cocaine Screen NEGATIVE 10/16/20 19:00 U Marijuana (THC) Screen NEGATIVE 10/16/20 19:00 RPR NONREACTIVE (NONREACTIVE) 10/16/20 22:04 Blood Type O POSITIVE 10/16/20 22:04 Antibody Screen NEGATIVE 10/16/20 22:04 Plan Plan of Treatment: follow up in 4 weeks at [facility] for post check
--- NOTE | 2020-10-20 12:00 | Delivery Summary ---
Del Sum A-C Datetime Report Generated by CPN: 10/20/2020 12:00 DELIVERY PERSONNEL DELIVERY PERSONNEL: [id number] Delivery Doctor:: Nadege Church MD HATCH SUPERVISOR:: Eva Carter HATCH SUPERVISOR Labor and Delivery Nurse:: Yrn Valentin RN Nursery Nurse:: Nichole Singleton RN Nursery Nurse:: Ekaterina Ware RN Hospital Educator/TARIFF EXPERT: Ernestine Vance, TECHNICAL PHOTOGRAPHER MATERNAL INFORMATION Delivery Anesthesia: Epidural Medications After Delivery: Pitocin 30 Units in 500ml NS/D5W Estimated Blood Loss (ml): 150 Delivery QBL: 150 Maternal Complications: None Provider Comments: VMI delivered in JASON presentation. No nuchal cord. Shoulders and body delivered without difficulty. Cord doubly clamped and cut. Placenta delivered intact spontaneously. FF at U. No perineal lacerations. Good hemostasis. Mother and baby stable upon provider leaving the room. LABOR SUMMARY EDC: 10/14/2020 00:00 No. Babies in Womb: 1 Attempted: No Labor Anesthesia: Epidural LABOR INFORMATION Reason for Induction: Not Applicable Onset of Labor: 10/16/2020 19:36 Complete Dilatation: 10/17/2020 01:49 Oxytocin: N/A Group B Beta Strep: negative Antibiotics # of Doses: 0 Name of Antibiotic Given: N/A Steroids Given: None Reason Steroids Not Administered: Not Applicable MEMBRANES Membranes Rupture Method: Artificial Rupture of Membranes: 10/16/2020 22:36 Length of Rupture (hr): 4.17 Amniotic Fluid Color: Clear Amniotic Fluid Amount: Small Amniotic Fluid Odor: Normal STAGES OF LABOR Stage 1 hr: 6 Stage 1 min: 13 Stage 2 hr: 0 Stage 2 min: 57 Stage 3 hr: 0 Stage 3 min: 3 Total Time in Labor hr: 7 Total Time in Labor min: 13 VAGINAL DELIVERY Episiotomy: None Laceration #1: None Laceration Extension #1: N/A Laceration Repair: Not Applicable Sponge Count Correct: Yes Sharps Count Correct: Yes CSECTION DELIVERY Primary Indication: N/A Secondary Indication: N/A CSection Incidence: N/A Elective: N/A CSection Incision: N/A BABY A INFORMATION Infant Delivery Date/Time: 10/17/2020 02:46 Method of Delivery: Vaginal Method of Delivery: Vaginal Nurse Controlled Delivery: No Born in Route : No : N/A Forceps: N/A Vacuum Extraction: N/A Shoulder Dystocia : No PRESENTATION/POSITION BABY A Presentation: Cephalic Cephalic Presentation: Vertex Vertex Position: Right Occipital Anterior Breech Presentation: N/A PLACENTA INFORMATION BABY A Placenta Delivery Time : 10/17/2020 02:49 Placenta Method of Delivery: Spontaneous Placenta Status: Delivered SCORES BABY A Heart Rate 1 min: >100 bpm Resp Effort 1 min: Slow, Irregular Reflex Irritability 1 min: Cough or Sneeze or Pulls Away Muscle Tone 1 min: Active Motion Color 1 min: Blue/Pale Resuscitation Effort 1 min: Tactile Stimulation SCORE 1 MIN: 7 Heart Rate 5 min: >100 bpm Resp Effort 5 min: Good Cry Reflex Irritability 5 min: Cough or Sneeze or Pulls Away Muscle Tone 5 min: Active Motion Color 5 min: Body [place], Extremities Blue SCORE 5 MIN: 9 INFANT INFORMATION BABY A Gestational Age at Delivery: 40.3 Gestational Status: Full Term- 39- 40.6 Weeks Infant Outcome : Liveborn Condition : Stable Sex: Male Infant Sex: Male IDENTIFICATION BABY A Verification Date/Time: 10/17/2020 03:21 ID Band Number: [id number] Mother's Name Verified: Yes Infant RN Verifying : K Liam, RN Additional Verifying Personnel: Antoni Valentin [facility] WEIGHT/LENGTH BABY A Infant Birthweight (gm): 4025 Infant Weight (lb): 8 Weight (oz): 14 Length (in): 22.00 Length (cm): 55.88 CORD INFORMATION BABY A No. Cord Vessels: 3 Nuchal Cord : N/A Cord Blood Taken: Yes-For Storage (Mom's Blood type +) Infant Suction: None ASSESSMENT BABY A Complications: Multiple Late Decels; Multiple Variable Decels Physical Findings- Other: see initial nursery assessment Infant Respirations: Appears Normal Skin to Skin: Yes Machine Brush Maker/ALS Called : No Infant Care By: Iman Ware, RN Transferred To: Remains with Mother BABY B INFORMATION : N/A SIGNATURES Signature: with User ID: [email or web address]
== END 2020-10-19 16:00 | disposition home or self-care (01) | DRG 807 ==
LOC: LC 18:52 → LR 22:00 → 2S 10-17 05:05
PROVIDERS: ADMIT Student in an Organized Health Care Education/Training Program; ATTEND Student in an Organized Health Care Education/Training Program
PROC: 10907ZC Drainage of Amniotic Fluid, Therapeutic from Products of Conception, Via Natural or Artificial Opening (ICD-10-PCS; 2020-10-16)
PROC: 10E0XZZ Delivery of Products of Conception, External Approach (ICD-10-PCS; principal; 2020-10-17)
DX: O87.8 Other venous complications in the puerperium (principal); Z37.0 Single live birth; O76 Abnormality in fetal heart rate and rhythm complicating labor and delivery; O99.02 Anemia complicating childbirth; Z3A.40 40 weeks gestation of pregnancy; Z87.891 Personal history of nicotine dependence
CPT/HCPCS: 1967; 36415; 80307; 81005; 85027; 86592; 86850; 86900; 86901; 94760; J0360; J2590; J2795; J3010; J3490